=== PATIENT | male | born 1965 | race Caucasian/White ===

== ENCOUNTER 2017-07-31 23:34 | Emergency (ER) | payer BC ==
[2017-07-31 23:42] VITALS: BP 127/56; PULSE 66; RESP 18; TEMP 97
[2017-08-01] MEDS ORDERED: DIPH,PERTUS(ACELL)TETVAC-LF 0.5 ML VIAL IM ONE (00:28)
--- NOTE | 2017-08-01 00:29 | ED ---
Wound/Laceration HPI - General Chief Complaint: Wound/Laceration Stated Complaint: Chin Laceration Time Seen by Provider: 07/31/17 23:50 Source: patient Mode of arrival: ambulatory Limitations: no limitations - History of Present Illness Initial Comments: 51-year-old male presented for evaluation of laceration to his chin after being hit in the face with a hockey stick. He denies any loss of consciousness or blood thinners. States that he continued to play after this however wanted reevaluated at this time. He is unsure of when his last tetanus update was. Denies any other injuries. - Related Data Home Medications Medication Instructions Recorded Confirmed Levothyroxine Sodium [Synthroid] 88 mcg PO DAILY 05/11/15 10/06/15 Previous Rx's Medication Instructions Recorded Colchicine 0.6 mg PO BID #12 capsule 10/07/15 Indomethacin [Indocin] 50 mg PO TID #9 capsule 10/07/15 predniSONE 60 mg PO DIRECTED #30 tab 10/07/15 Allergies Allergy/AdvReac Type Severity Reaction Status Date / Time No Known Allergies Allergy Verified 07/31/17 23:42 Review of Systems ROS Statement: Those systems with pertinent positive or pertinent negative responses have been documented in the HPI. ROS Other: All systems not noted in ROS Statement are negative. Eyes: Denies: eye pain, vision change Respiratory: Denies: cough, dyspnea Cardiovascular: Denies: chest pain, palpitations Gastrointestinal: Denies: nausea, vomiting Skin: Reports: lesions (Laceration). Denies: change in color Past Medical History Past Medical History: Thyroid Disorder Additional Past Medical History / Comment(s): May have sleep apnea. History of Any Multi-Drug Resistant Organisms: None Reported Past Surgical History: Orthopedic Surgery Additional Past Surgical History / Comment(s): L elbow surgery and multiple knee surgeries from past sport injuries. Past Anesthesia/Blood Transfusion Reactions: No Reported Reaction Past Psychological History: No Psychological Hx Reported Smoking Status: Never smoker Past Alcohol Use History: None Reported Past Drug Use History: None Reported - Past Family History Father Family Medical History: Cancer, Coronary Artery Disease (CAD) Additional Family Medical History / Comment(s): Kidney transplant. General Exam Limitations: no limitations General appearance: alert, in no apparent distress Head exam: Present: normocephalic, other (Laceration to chin) Eye exam: Present: normal appearance, EOMI. Absent: scleral icterus, conjunctival injection, periorbital swelling Neck exam: Present: normal inspection. Absent: tenderness Respiratory exam: Present: normal lung sounds bilaterally. Absent: respiratory distress Cardiovascular Exam: Present: regular rate, normal rhythm Rectal exam: Present: deferred Extremities exam: Present: normal inspection, full ROM Back exam: Present: normal inspection, full ROM Neurological exam: Present: alert, oriented X3 Psychiatric exam: Present: normal affect, normal mood Skin exam: Present: warm, dry, other (Laceration of 2 cm) Course Vital Signs 07/31/17 23:39 Temperature 97.0 F L Pulse Rate 66 Respiratory 18 Rate Blood Pressure 127/56 O2 Sat by Pulse 96 Oximetry Procedures - Laceration Laceration #1 Consent Obtained: verbal consent Time Out Performed: Yes Indication: laceration Site: face Size (cm): 2 Description: linear Depth: simple, single layer Anesthetic Used: lidocaine 1% Anesthesia Technique: local infiltration Amount (mls): 4 Pre-repair: irrigated extensively Size of Sutures: 5-0 Technique: simple, interrupted Patient Tolerated Procedure: well Medical Decision Making - Medical Decision Making 51-year-old male presenting for evaluation of laceration to chin. Patient states he is unsure when his tetanus was last updated. Laceration repaired as noted above with close approximation and 3 sutures. Patient was given IM tetanus update. Given suture care instructions and advised follow-up with primary care physician for removal or to return back to the ED. Further advised to return if he should have any consultations from the laceration repair. The patient acknowledged an understanding of all information provided and agreed with this plan of care. Disposition Clinical Impression: Chin laceration Disposition: HOME SELF-CARE Condition: Stable Instructions: Care For Your Stitches (ED), Stitches Removal (ED) Additional Instructions: Please follow up with her primary care physician within next 5-7 days for suture removal. Do not submerge the stitches during this time and try to keep them dry over the next 24 hours. You can then start showering and cleaning the area gently with soapy water. Referrals: Isac Johnson MD [Primary Care Provider] - 1-2 days Time of Disposition: 00:29
== END 2017-08-01 00:45 | disposition home or self-care (01) ==
LOC: EC 23:34
DX: S01.81XA Laceration without foreign body of other part of head, initial encounter (principal); E07.9 Disorder of thyroid, unspecified; Z79.899 Other long term (current) drug therapy; Z53.20 Procedure and treatment not carried out because of patient's decision for unspecified reasons; W22.8XXA Striking against or struck by other objects, initial encounter; Y93.22 Activity, ice hockey
CPT/HCPCS: 12011; 99282

== ENCOUNTER → 2018-01-22 | Outpatient (CLI) | payer BC ==
--- NOTE | 2018-01-22 11:18 | MR ---
EXAMINATION TYPE: MR brain wo/w con DATE OF EXAM: 01/22/2018 COMPARISON: NONE HISTORY: Headache CONTRAST: Performed utilizing 10 mL intravenous Gadavist gadolinium contrast. TECHNIQUE: Multiplanar, multiecho imaging on a 3.0 Tamara magnet is performed through the brain. Stud y is performed within 24 hours of arrival to the hospital. The craniovertebral junction is normal. The pituitary is normal. Diffusion-weighted imaging is performed. No abnormal hyperintensity is present to suggest an acute i ntracranial infarct or acute ischemic change. Signal through the brain is normal. Ventricles and sulci are appropriate for the patient age. IMPRESSIONS: 1. Normal pre and postcontrast MRI brain.
--- NOTE | 2018-01-22 11:20 | MR ---
EXAMINATION TYPE: MR angio head wo con DATE OF EXAM: 01/22/2018 COMPARISON: NONE HISTORY: Headache CONTRAST: None TECHNIQUE: Multiplanar multiecho imaging on a 3.0 Tamara magnet is performed through the [place]. 3-D [id number] imaging is performed. Source images are reviewed on the computer in the axi al plane. Reconstructed images rotating on the computer are reviewed. FINDINGS: The internal carotid arteries bifurcate normally into A1 and M1 segments. The A2 segments are normal. Middle cerebral artery branches are normal. Anterior communicating artery is patent. The right posterior communicating artery is patent. The left posterior communicating artery is patent. Vertebrobasilar arteries within the [id number] are normal. Posterior cerebral vasculature is norm al. No suspicious aneurysm or aneurysmal dilatation is evident. No obstructions are identified. No sign ificant flow-limiting stenosis is evident. IMPRESSIONS: 1. NORMAL MRA [place] OF PABLO.
== END ==
LOC: RADMRIMAIN 06:26
PROVIDERS: ATTEND Family Medicine
DX: R51 Headache (principal)
CPT/HCPCS: 70544; 70553; A9581

== ENCOUNTER 2018-07-27 09:08 | Day surgery (SDC) | payer BC ==
[2018-07-23 14:17] VITALS: BMI 28.0
[~2018-07-27 09:08] MED LIST: LACTATED RINGERS 1,000 ML IV SCH
[2018-07-27 09:24] VITALS: RESP 16; TEMP 97.6
[2018-07-27] MEDS ORDERED: LACTATED RINGERS 1,000 ML IV ONE (09:30)
[2018-07-27] MEDS ORDERED: LIDOCAINE 1% 20 ML VIAL (10MG/ML) FOR IV START INTRADERMA ONE (09:30)
[2018-07-27] MEDS ORDERED: PROPOFOL 10 MG/ML 20 ML VIAL IV ONE (10:12)
--- NOTE | 2018-07-27 10:18 | P.GSHP ---
History of Present Illness H&P Date: 07/27/18 Chief Complaint: Screening colonoscopy This is a 52-year-old male referred from Dr. Johnson. Patient does today for screening colonoscopy. Past Medical History Past Medical History: Thyroid Disorder Additional Past Medical History / Comment(s): May have sleep apnea. History of Any Multi-Drug Resistant Organisms: None Reported Past Surgical History: Orthopedic Surgery Additional Past Surgical History / Comment(s): L elbow surgery and RIGHT AND LEFT KNEE ARTHROTOMY, RIGHT KNEE ARTHROSCOPY Past Anesthesia/Blood Transfusion Reactions: No Reported Reaction Smoking Status: Never smoker - Past Family History Father Family Medical History: Cancer, Coronary Artery Disease (CAD) Additional Family Medical History / Comment(s): Kidney transplant. COLON CANCER Medications and Allergies Home Medications Medication Instructions Recorded Confirmed Type Levothyroxine Sodium [Synthroid] 112 mcg PO DAILY 05/11/15 07/27/18 History Allergies Allergy/AdvReac Type Severity Reaction Status Date / Time No Known Allergies Allergy Verified 07/27/18 09:16 Surgical - Exam Vital Signs Temp Pulse Resp BP Pulse Ox 97.6 F 62 16 131/69 97 07/27/18 09:22 07/27/18 09:22 07/27/18 09:22 07/27/18 09:22 07/27/18 09:22 - General well developed, no distress - Eyes PERRL - ENT normal pinna - Neck no masses - Respiratory normal expansion - Cardiovascular Rhythm: regular Assessment and Plan Assessment: We'll perform screening colonoscopy.
--- NOTE | 2018-07-27 10:33 | P.OP ---
Date of Procedure: 07/27/18 Preoperative Diagnosis: Screening colonoscopy Family history of colon cancer Postoperative Diagnosis: Normal colon Procedure(s) Performed: Colonoscopy Anesthesia: MAC Surgeon: Angelo Lovett Pathology: none sent Condition: stable Disposition: PACU Description of Procedure: PROCEDURE: The patient was placed on the endoscopy table in the lateral position. Digital rectal examination was performed which revealed no abnormalities. The prostate was symmetrical without nodules. Flexible colonoscope was then placed in the patient's anus and passed throughout the entire colon. The ileocecal valve was visualized. The cecum, ascending, transverse, descending and sigmoid colon were normal. The rectum was normal as well. There were no masses, polyps or diverticula noted in the entire colon. SUMMARY OF FINDINGS: Normal colonoscopy.
[2018-07-27 10:56] VITALS: BP 114/70; PULSE 51
== END 2018-07-27 11:35 | disposition home or self-care (01) ==
LOC: ORWHC2ENDO 09:08
PROVIDERS: ATTEND Surgery
DX: Z12.11 Encounter for screening for malignant neoplasm of colon (principal); Z86.010 Personal history of colon polyps; Z80.0 Family history of malignant neoplasm of digestive organs; E07.9 Disorder of thyroid, unspecified; Z79.890 Hormone replacement therapy
CPT/HCPCS: J2704; G0105; 45378

== ENCOUNTER → 2024-10-12 | Outpatient (CLI) | payer BC ==
--- NOTE | 2024-10-12 09:02 | CT ---
EXAMINATION TYPE: CT sinus wo con DATE OF EXAM: 10/12/2024 8:28 AM COMPARISON: None. CLINICAL INDICATION: Male, 59 years old with history of J32.0 CHRONIC MAXILLARY SINUSITIS; , sinus co ngestion TECHNIQUE: Multiple thin axial images were obtained through the paranasal sinuses without the use of IV contrast. Additional coronal and sagittal reformatted images were submitted for evaluation. Contrast used: none Oral contrast used: none CT DLP: 440.7 mGycm, Automated exposure control for dose reduction was used. FINDINGS: Frontal sinuses: Hypoplastic bilaterally with mucosal thickening. Frontal Recess: Mucosal thickening with narrowing/opacification bilaterally right greater than left. Maxillary Sinuses: Normally developed and aerated. Maxillary Infundibula([facility]): Mild narrowing due to mucosal thickening bilaterally., No Lindsay cells id entified. Ethmoid sinuses: Normally developed with mucosal thickening and secretions.. Ethmoidal notch: Protect ed and abutting the lateral lamina. Sphenoid sinuses: Normally developed with mucosal thickening and secretions.. There is sellar sphenoi d sinus pneumatization without evidence of dehiscence. No dehiscence of carotid canal. No evidence o f optic nerve dehiscence within the sphenoid sinus. No evidence of Onodi cells. Sphenoethmoidal rece sses: Mucosal thickening with narrowing. Nasal septum: Mildly deviated right word posteriorly in the superior portion leftward at the anterior portion with left bony spurring and interdigitating the middle and inferior turbinate. Nasal Turbinates: Mucosal thickening of the middle and inferior terminates worse on the right. Mastoid air cells & middle ears: The air cells are clear. The middle ears are grossly unremarkable. Modified Soft tissues & Brain: Partially seen without gross abnormality. Globes are intact. Other: Cribriform plate demonstrates symmetric Keros classification type 2 cribriform plate. No evidence of bony dehiscence of skull base. Lamina papyracea is intact without evidence of remote orbital fracture or orbital prolapse into the e thmoid sinus. IMPRESSION: Moderate paranasal sinus disease with narrowing of the ostiomeatal units, obstruction left frontonasa l recesses and narrowing of the sphenoethmoidal recesses. [facility], , 10/12/2024 9:00 AM
== END | disposition home or self-care (01) ==
LOC: RADCTMAIN 08:08
PROVIDERS: ATTEND Otolaryngology
DX: J32.0 Chronic maxillary sinusitis (principal)
CPT/HCPCS: 70486

== ENCOUNTER → 2024-12-01 | Day surgery (SDC) | payer BC ==
[~2024-12-01] MED LIST changes: +GLYCOPYRROLATE 0.2 MG/ML 2 ML VIAL ONE; -LACTATED RINGERS 1,000 ML IV SCH; +LIDOCAINE 1% (10MG/ML) FOR IV START INTRADERMA PRN; +LIDOCAINE 1% INJ 10MG/ML (20 ML MDV) ONE; +MIDAZOLAM 2 MG/2 ML VIAL ONE; +NEOSTIGMINE 1 MG/ML 10 ML VIAL ONE; +PROPOFOL 10 MG/ML 20 ML VIAL IV ONE; +ROCURONIUM 10 MG/ML (5 ML VIAL) IV ONE; +SCOPOLAMINE 1 MG/72 HR PATCH TRANSDERM ONE; +SUCCINYLCHOLINE CHLORIDE 200 MG/10 ML VIAL IV ONE; +droPERidol 2.5 MG/ML VIAL IVP ONE; +fentaNYL (PF) 50 MCG/ML 2 ML AMP ONE
[2024-12-01] MEDS: IV FLUID CONTINUATION 1,000 ML IV ONE (08:30)
[2024-12-01] MEDS: OXYMETAZOLINE 0.05% NASL SPRAY 1 SPRAY BOTTLE EA NOSTRIL PRN (08:35)
[2024-12-01] MEDS: LACTATED RINGERS 1,000 ML IV SCH (08:39)
[2024-12-01] MEDS: DEXAMETHASONE SOD PHOSPHATE 4 MG/ML 1 ML VIAL IV ONE (08:42)
[2024-12-01] MEDS: FAMOTIDINE 20 MG/2 ML VIAL IV PRN (08:42)
[2024-12-01] MEDS: ONDANSETRON 4 MG/2 ML VIAL IVP ONE (08:42)
[2024-12-01] MEDS: ceFAZolin 2 GM in DEXTROSE 5% IN WATER 50 ML IVPB PRN (08:57)
[2024-12-01] MEDS: LIDOCAINE 1%-EPI 1:100,000 20 ML VIAL SUBMUCOSAL ONE ×2 (09:11)
[2024-12-01] MEDS: BACITRACIN ZINC 500 UNIT/GM OINT 28.4 GM TUBE TOPICAL ONE ×2 (09:16→09:59)
--- NOTE | 2024-12-01 10:05 | P.OP ---
Date of Procedure: 12/01/24 Preoperative Diagnosis: deviated nasal septum Inferior turbinate hypertrophy Chronic sinusitis Postoperative Diagnosis: same Procedure(s) Performed: septoplasty Outfracture and submucous resection of the inferior turbinates Bilateral endoscopic sinus surgery including bilateral maxillary antrostomy with removal of tissue from the maxillary sinuses bilateral anterior and posterior ethmoidectomy with sphenoidotomy bilatera with exploration and removal of tissue from sphenoid sinuses and bilateral frontal sinusotomy with exploration Anesthesia: DEBRA Surgeon: Ander Hernandez Estimated Blood Loss (ml): 10 Pathology: other (nasal septal bone and cartilage and sinus contents) Condition: stable Disposition: PACU Indications for Procedure: this 59-year-old white male with difficulties with chronic airway obstruction bilaterally as well as chronic and recurrent sinusitis he has deviated nasal septum as well as inferior turbinate hypertrophy and chronic sinusitis based on symptoms and CT sinus Operative Findings: nasal septum deviated to the right anteriorly to the left posteriorly with inferior turbinate hypertrophy. Mucosal thickening with small cysts in the maxillary sinuses bilaterally also chronic inflammation throughout the anterior posterior ethmoid air cells frontal and Description of Procedure: The patient was brought into the operative suite and placed in a supine position. The patient underwent induction of general anesthesia with oral endotracheal intubation without difficulty. The patient was prepped and draped in the usual aseptic fashion with the orbits in the operating field for monitoring to the case and the computed tomography scan was on the computer screen for review throughout the case. 1% lidocaine with 1 :100,000 epinephrine was infused submucosally into both sides of the nasal septum as well as the lateral nasal wall and anterior tips of the middle turbinates. While this was taking vasoconstrictive effect the inferior turbinates were infractured with [place] elevator and partial submucous resection of the inferior turbinates was performed with a portion of the submucosal soft tissue and the inferior turbinate bone removed with Coblation device. The inferior turbinates were then outfractured with the [place] elevator. A left hemitransfixion incision was then made with the mucoperichondrial and mucoperiosteal flap on the left elevated. The bony cartilaginous junction was disarticulated and the mucoperiosteal flap on the right was elevated. Bony nasal septal deformities were removed with Bridgette forceps and an inferior cartilaginous strip was removed leaving a full 1.5 cm caudal strut. Checking intranasally this corrected the nasoseptal deformities and the hemitransfixion incision was closed with a running 4-0 chromic suture. Full 0° endoscopic examination is performed bilaterally. Beginning on the left, the middle turbinate was medialized. The maxillary ostium was located with a ballpoint probe and an infundibulotomy was performed followed by uncinectomy. The maxillary antrostomy was enlarged at the expense of the anterior and posterior fontanelle taking care anteriorly not to injure the lacrimal bone. The maxillary sinus was evaluated with 30 and 70° endoscope .[Abnormal appearing tissue was removed from the maxillary sinus]. Anterior and posterior ethmoidectomy were then performed from anterior to posterior to the level of the skull base. The roof of the anterior ethmoid air cells were then cleaned from posterior to anterior using up-biting Blakesley forceps. frontal sinusotomy was performed under 30 and 70 endoscope utilizing ballpoint probe, curved suction and giraffe forceps The frontal sinus was then explored with 30° endoscope.[Abnormal tissue was removed from the frontal sinus]. sphenoidotomy was performed under 0 endoscopic visualization utilizing straight suction and straight Blakesley forceps The sphenoid sinus was then explored with 0° endoscope.[Abnormal tissue was removed from the sphenoid sinus]. Attention was then turned to the right where the procedures were followed as they had been on the left [place] medialization of the middle turbinate infundibulotomy uncinectomy maxillary antrostomy with removal of tissue from the maxillary sinuses anterior and posterior ethmoidectomy, frontal sinusotomy with exploration and removal of tissue and sphenoidotomy with removal of tissue from the sphenoid sinus. [Nasopore nasal dressing was placed in the middle meatus bilaterally under direct visualization]. Bilateral Kilpatrick airway splints coated with bacitracin ointment were placed and sutured transseptally with a 4-0 nylon suture. The patient was suctioned in oral gastric fashion and was allowed to emerge from general anesthesia having tolerated procedure well and was extubated in the operating suite and transferred to the postoperative recovery area in satisfactory condition.
[2024-12-01 10:17] VITALS: TEMP 97.1
[2024-12-01] MEDS: HYDROmorphone 0.5 MG/0.5 ML SYRINGE IVP PRN (10:30)
[2024-12-01] MEDS: IPRATROPIUM-ALBUTEROL 3 ML NEB INHALATION STA (11:39)
[2024-12-01 12:22] VITALS: BP 128/76; PULSE 59; RESP 16
== END | disposition home or self-care (01) ==
LOC: OR 08:04
PROVIDERS: ATTEND Otolaryngology
DX: D72.10 Eosinophilia, unspecified (principal); J34.2 Deviated nasal septum; J32.9 Chronic sinusitis, unspecified; J34.3 Hypertrophy of nasal turbinates; J44.9 Chronic obstructive pulmonary disease, unspecified; E07.9 Disorder of thyroid, unspecified; K21.9 Gastro-esophageal reflux disease without esophagitis; Z79.890 Hormone replacement therapy
CPT/HCPCS: 30520; 30140; 31267; 31259; 31276; 88305; 88300; J2250; J0330; J1100; J2710; J0690; J2405; J2003; J3010; J2704; J1171; J1596; J1308